=== PATIENT | female | born 1970 | race Caucasian/White ===

== ENCOUNTER 2020-09-13 13:11 | Inpatient (IN) ==
[2020-09-13] MEDS ORDERED: FUROSEMIDE 100 MG/10 ML VIAL IV STA (13:32)
[2020-09-13] MEDS ORDERED: ALBUTEROL NEB SOLN 5 MG/ML 20 ML/BOTTLE CONT NEB SCH (14:00)
[2020-09-13 14:34] LABS: Basophils % 0.4 % (0.0-0.8); Eosinophils # 0.1 10*3/uL (0.0-0.87); Eosinophils % 1.1 % (0.00-10.9); Hematocrit 46.3 VOL% (35.7-47.0); Immature Granulocytes % 0.6 %; Immature Granulocytes Absolute 0.06 #; Lymphocytes # 3.2 10*3/uL (1.4-4.0); Lymphocytes % 29.3 % (21.3-54.2); Mean Corpuscular HGB Conc 32.4 GM/DL (32-36); Mean Corpuscular Volume 83.6 FL (87-102); Mean Platelet Volume 10.3 FL (9.6-12.0); Monocytes % 9.3 % (1.7-12.7); Neutrophils % 59.3 % (38.7-73.9); Platelet Count 298 T/CUMM (130-400); Red Blood Count 5.54 MC/CUMM (3.8-5.5); Red Cell Distribution Width 14.9 % (9.3-17.3); White Blood Count 10.8 T/CUMM (4-12)
[2020-09-13 14:46] LABS: INR 1.2
[2020-09-13 14:53] LABS: ABG Base Excess 4.5 MMOL/L (-2.5-2.5); ABG HCO3 28.5 MMOL/L (20-26); ABG Oxygen Saturation 98.3 % (95-100); ABG PCO2 47.1 MM HG (35-48); ABG PH 7.414 (7.35-7.45); ABG TCO2 25.6 MMOL/L (23-27)
[2020-09-13 14:54] LABS: Albumin 2.6 G/DL (3.4-5.0); Bilirubin,Total 1.6 MG/DL (0.2-1.0); Calcium 8.4 MG/DL (8.5-10.1); Osmolality,Calculated 264.4 MOS/KG (273-304); Potassium 4.3 MMOL/L (3.5-5.1); Total Protein 5.9 G/DL (6.4-8.2)
[2020-09-13] MEDS ORDERED: ONDANSETRON 4 MG/2 ML VIAL IV PRN (15:29)
[2020-09-13] MEDS ORDERED: ACETAMINOPHEN 325 MG TABLET PO PRN (15:29)
[2020-09-13] MEDS ORDERED: DEXTROSE 50% 25 GM/50 ML VIAL IV PRN ×2 (15:29→15:32)
[2020-09-13] MEDS ORDERED: GLUCAGON 1 MG VIAL IM PRN (15:29)
[2020-09-13 15:38] LABS: Bacteria,Urine Many /HPF (Few); Bilirubin,Urine Negative (Negative); Blood, Urine Small mg/dL (Negative); Glucose,Urine (UA) Negative (Negative); Hyaline Casts,Urine 17 /LPF (0-3); Ketones,Urine Negative (Negative); Mucus,Urine Occasional /LPF (Occasional); Nitrite,Urine Positive (Negative); Protein,Urine Negative; RBC,Urine 1 /HPF (0-4); Squamous Epithelial Cell,Urine Occasional /HPF (0-10); Urine Appearance CLEAR (Clear); Urine Color Yellow (Yellow); Urine Specific Gravity 1.004 (1.001-1.035); Urine Urobilinogen < 2.0 EU/DL (0.2-1.0)
[2020-09-13 15:39] LABS: Barbiturates Screen,Urine Negative (Negative); Benzodiazepines Screen,Urine Negative (Negative); Cannabinoid Screen,Urine Negative (Negative); Opiate Screen,Urine Negative (Negative); Phencyclidine Screen,Urine Negative (Negative)
[2020-09-13] MEDS: NICOTINE 21 MG/24 HR PATCH TRANSDERM SCH (18:20)
[2020-09-13] MEDS: INSULIN REGULAR 100 UNIT/ML SUBCUT SCH ×2 (18:36→21:33)
[2020-09-13] MEDS: ALBUTEROL/IPRATROPIUM 3 ML NEB RESP TX SCH (19:47)
[2020-09-13] MEDS ORDERED: INSULIN GLARGINE 100 UNIT/ML SUBCUT SCH (21:00)
[2020-09-13] MEDS: buPROPion SR 100 MG TABLET PO SCH (21:33)
[2020-09-13] MEDS: ENOXAPARIN 40 MG/0.4 ML SYRINGE SUBCUT SCH (21:33)
[2020-09-13] MEDS: DOCUSATE SODIUM 100 MG CAPSULE PO PRN (21:33)
[2020-09-13] MEDS: FUROSEMIDE 40 MG/4 ML VIAL IV SCH (21:34)
[2020-09-13] MEDS: LEVOFLOXACIN INJ 750 MG/150 ML PREMIX IV SCH (21:39)
[2020-09-14] MEDS: ALBUTEROL/IPRATROPIUM 3 ML NEB RESP TX SCH ×4 (00:58→19:57)
[2020-09-14 06:43] LABS: Basophils % 0.3 % (0.0-0.8); Eosinophils # 0.1 10*3/uL (0.0-0.87); Eosinophils % 0.9 % (0.00-10.9); Hematocrit 43.4 VOL% (35.7-47.0); Hemoglobin 13.9 GM/DL (12.0-16.0); Immature Granulocytes % 1.3 %; Immature Granulocytes Absolute 0.14 #; Lymphocytes # 2.4 10*3/uL (1.4-4.0); Mean Corpuscular Volume 84.9 FL (87-102); Mean Platelet Volume 10.5 FL (9.6-12.0); Monocytes % 9.7 % (1.7-12.7); Neutrophils % 64.8 % (38.7-73.9); Platelet Count 277 T/CUMM (130-400); Red Blood Count 5.11 MC/CUMM (3.8-5.5); Red Cell Distribution Width 14.7 % (9.3-17.3); White Blood Count 10.5 T/CUMM (4-12)
[2020-09-14 07:28] LABS: Calcium 8.3 MG/DL (8.5-10.1); Osmolality,Calculated 269.8 MOS/KG (273-304); Potassium 3.3 MMOL/L (3.5-5.1); Thyroid Stimulating Hormone 5.63 uIU/ml (0.358-3.74)
[2020-09-14] MEDS: FUROSEMIDE 40 MG/4 ML VIAL IV SCH ×2 (08:59→20:55)
[2020-09-14] MEDS ORDERED: FUROSEMIDE 40 MG/4 ML VIAL IV SCH (09:00)
[2020-09-14] MEDS: glipiZIDE 5 MG TABLET PO SCH ×2 (09:00→16:08)
[2020-09-14] MEDS: sitaGLIPtin 100 MG TABLET PO SCH (09:00)
[2020-09-14] MEDS: INSULIN REGULAR 100 UNIT/ML SUBCUT SCH ×4 (09:00→20:54)
[2020-09-14] MEDS: buPROPion SR 100 MG TABLET PO SCH ×2 (09:01→20:53)
[2020-09-14] MEDS: POTASSIUM CHLORIDE 20 MEQ TABLET PO SCH (09:01)
[2020-09-14] MEDS: metFORMIN 500 MG TABLET PO SCH ×2 (09:01→16:08)
[2020-09-14] MEDS: NICOTINE 21 MG/24 HR PATCH TRANSDERM SCH (09:03)
[2020-09-14] MEDS: BACITRACIN OINT 0.9 GM PACK TOP SCH (16:08)
[2020-09-14] MEDS: DOCUSATE SODIUM 100 MG CAPSULE PO PRN (16:12)
[2020-09-14] MEDS: ENOXAPARIN 40 MG/0.4 ML SYRINGE SUBCUT SCH (20:53)
[2020-09-14] MEDS: LEVOFLOXACIN INJ 750 MG/150 ML PREMIX IV SCH (20:55)
[2020-09-15] MEDS: ALBUTEROL/IPRATROPIUM 3 ML NEB RESP TX SCH ×4 (00:03→19:50)
[2020-09-15 06:37] LABS: Basophils % 0.3 % (0.0-0.8); Eosinophils # 0.2 10*3/uL (0.0-0.87); Eosinophils % 1.3 % (0.00-10.9); Hemoglobin 13.7 GM/DL (12.0-16.0); Immature Granulocytes % 0.5 %; Immature Granulocytes Absolute 0.06 #; Lymphocytes # 2.5 10*3/uL (1.4-4.0); Lymphocytes % 21.3 % (21.3-54.2); Mean Corpuscular HGB Conc 31.9 GM/DL (32-36); Mean Corpuscular Volume 83.7 FL (87-102); Mean Platelet Volume 10.3 FL (9.6-12.0); Monocytes % 9.6 % (1.7-12.7); Platelet Count 273 T/CUMM (130-400); Red Blood Count 5.14 MC/CUMM (3.8-5.5); Red Cell Distribution Width 14.9 % (9.3-17.3); White Blood Count 11.9 T/CUMM (4-12)
[2020-09-15 07:07] LABS: Calcium 8.1 MG/DL (8.5-10.1); Osmolality,Calculated 266.5 MOS/KG (273-304); Potassium 3.2 MMOL/L (3.5-5.1)
[2020-09-15] MEDS: metFORMIN 500 MG TABLET PO SCH (08:36)
[2020-09-15] MEDS: DOCUSATE SODIUM 100 MG CAPSULE PO PRN (08:36)
[2020-09-15] MEDS: buPROPion SR 100 MG TABLET PO SCH (08:36)
[2020-09-15] MEDS: POTASSIUM CHLORIDE 20 MEQ TABLET PO SCH (08:36)
[2020-09-15] MEDS: sitaGLIPtin 100 MG TABLET PO SCH (08:36)
[2020-09-15] MEDS: FUROSEMIDE 40 MG/4 ML VIAL IV SCH ×2 (08:37→21:21)
[2020-09-15] MEDS: BACITRACIN OINT 0.9 GM PACK TOP SCH (08:37)
[2020-09-15] MEDS: INSULIN REGULAR 100 UNIT/ML SUBCUT SCH ×5 (08:37→21:18)
[2020-09-15] MEDS: NICOTINE 21 MG/24 HR PATCH TRANSDERM SCH (08:39)
[2020-09-15] MEDS: glipiZIDE 5 MG TABLET PO SCH ×2 (09:41→17:02)
[2020-09-15] MEDS: SENNA 8.6 MG TABLET PO SCH ×2 (09:41→21:15)
[2020-09-15] MEDS: DOCUSATE SODIUM 100 MG CAPSULE PO SCH ×2 (10:06→21:15)
[2020-09-15] MEDS ORDERED: POTASSIUM CHLORIDE 20 MEQ TABLET PO ONE (12:09)
[2020-09-15] MEDS: ASPIRIN EC 81 MG TABLET PO SCH (17:02)
[2020-09-15] MEDS: LOSARTAN 25 MG TABLET PO SCH (17:04)
[2020-09-15] MEDS: METOPROLOL TARTRATE 25 MG TABLET PO SCH (21:14)
[2020-09-15] MEDS: buPROPion SR 150 MG TABLET PO SCH (21:15)
[2020-09-15] MEDS: DIVALPROEX ER 500 MG TABLET PO SCH (21:18)
[2020-09-15] MEDS: ENOXAPARIN 40 MG/0.4 ML SYRINGE SUBCUT SCH (21:18)
[2020-09-15] MEDS: LEVOFLOXACIN INJ 750 MG/150 ML PREMIX IV SCH (21:21)
[2020-09-16] MEDS: ALBUTEROL/IPRATROPIUM 3 ML NEB RESP TX SCH ×4 (00:05→19:51)
[2020-09-16 05:17] LABS: Basophils % 0.2 % (0.0-0.8); Eosinophils # 0.1 10*3/uL (0.0-0.87); Eosinophils % 1.3 % (0.00-10.9); Hemoglobin 13.6 GM/DL (12.0-16.0); Immature Granulocytes % 0.6 %; Immature Granulocytes Absolute 0.06 #; Lymphocytes # 2.6 10*3/uL (1.4-4.0); Lymphocytes % 24.3 % (21.3-54.2); Mean Corpuscular HGB Conc 31.6 GM/DL (32-36); Mean Corpuscular Volume 84.8 FL (87-102); Mean Platelet Volume 10.3 FL (9.6-12.0); Monocytes % 10.2 % (1.7-12.7); Neutrophils % 63.4 % (38.7-73.9); Platelet Count 272 T/CUMM (130-400); Red Blood Count 5.07 MC/CUMM (3.8-5.5); White Blood Count 10.6 T/CUMM (4-12)
[2020-09-16 05:46] LABS: Calcium 8.1 MG/DL (8.5-10.1); Osmolality,Calculated 256.1 MOS/KG (273-304); Potassium 3.5 MMOL/L (3.5-5.1)
[2020-09-16] MEDS: INSULIN REGULAR 100 UNIT/ML SUBCUT SCH ×3 (08:39→16:27)
[2020-09-16] MEDS: ASPIRIN EC 81 MG TABLET PO SCH (09:31)
[2020-09-16] MEDS: POTASSIUM CHLORIDE 20 MEQ TABLET PO SCH (09:31)
[2020-09-16] MEDS: LOSARTAN 25 MG TABLET PO SCH (09:31)
[2020-09-16] MEDS: glipiZIDE 5 MG TABLET PO SCH (09:31)
[2020-09-16] MEDS: SENNA 8.6 MG TABLET PO SCH ×2 (09:31→20:52)
[2020-09-16] MEDS: METOPROLOL TARTRATE 25 MG TABLET PO SCH ×2 (09:31→20:52)
[2020-09-16] MEDS: FUROSEMIDE 40 MG/4 ML VIAL IV SCH ×2 (09:31→20:51)
[2020-09-16] MEDS: sitaGLIPtin 100 MG TABLET PO SCH (09:31)
[2020-09-16] MEDS: buPROPion SR 150 MG TABLET PO SCH ×2 (09:31→20:52)
[2020-09-16] MEDS: BACITRACIN OINT 0.9 GM PACK TOP SCH (09:32)
[2020-09-16] MEDS: DOCUSATE SODIUM 100 MG CAPSULE PO SCH ×2 (09:32→20:52)
[2020-09-16] MEDS: NICOTINE 21 MG/24 HR PATCH TRANSDERM SCH (09:45)
[2020-09-16] MEDS ORDERED: NITROGLYCERIN SL 0.4 MG TABLET SL PRN (11:26)
[2020-09-16] MEDS: PANTOPRAZOLE 40 MG TABLET PO SCH (12:10)
[2020-09-16] MEDS ORDERED: MAGNESIUM SULF RIDER 2 GM/50 ML PREMIX IV ONE (13:39)
[2020-09-16] MEDS: GABAPENTIN 100 MG CAPSULE PO SCH ×2 (14:37→20:52)
[2020-09-16] MEDS: LEVOFLOXACIN INJ 750 MG/150 ML PREMIX IV SCH (20:51)
[2020-09-16] MEDS: DIVALPROEX ER 500 MG TABLET PO SCH (20:53)
[2020-09-16] MEDS: ENOXAPARIN 40 MG/0.4 ML SYRINGE SUBCUT SCH (20:56)
[2020-09-17] MEDS: ALBUTEROL/IPRATROPIUM 3 ML NEB RESP TX SCH ×3 (00:21→13:03)
[2020-09-17 05:30] LABS: Basophils # 0.1 10*3/uL (0.0-0.2); Basophils % 0.5 % (0.0-0.8); Eosinophils # 0.2 10*3/uL (0.0-0.87); Eosinophils % 1.9 % (0.00-10.9); Hematocrit 40.9 VOL% (35.7-47.0); Hemoglobin 13.4 GM/DL (12.0-16.0); Immature Granulocytes % 0.6 %; Immature Granulocytes Absolute 0.06 #; Lymphocytes # 2.4 10*3/uL (1.4-4.0); Lymphocytes % 24.9 % (21.3-54.2); Mean Corpuscular HGB Conc 32.8 GM/DL (32-36); Mean Corpuscular Volume 83.8 FL (87-102); Mean Platelet Volume 10.4 FL (9.6-12.0); Neutrophils % 62.1 % (38.7-73.9); Platelet Count 266 T/CUMM (130-400); Red Blood Count 4.88 MC/CUMM (3.8-5.5); Red Cell Distribution Width 15.1 % (9.3-17.3); White Blood Count 9.7 T/CUMM (4-12)
[2020-09-17 05:48] LABS: Calcium 8.3 MG/DL (8.5-10.1); Osmolality,Calculated 261.1 MOS/KG (273-304); Potassium 3.4 MMOL/L (3.5-5.1)
[2020-09-17 06:07] LABS: Risk Ratio 3.52
[2020-09-17] MEDS: buPROPion SR 150 MG TABLET PO SCH ×2 (09:01→20:37)
[2020-09-17] MEDS: POTASSIUM CHLORIDE 20 MEQ TABLET PO SCH (09:01)
[2020-09-17] MEDS: FUROSEMIDE 40 MG/4 ML VIAL IV SCH ×2 (09:01→20:46)
[2020-09-17] MEDS: INSULIN REGULAR 100 UNIT/ML SUBCUT SCH ×4 (09:01→23:41)
[2020-09-17] MEDS: sitaGLIPtin 100 MG TABLET PO SCH (09:01)
[2020-09-17] MEDS: BACITRACIN OINT 0.9 GM PACK TOP SCH (09:01)
[2020-09-17] MEDS: SENNA 8.6 MG TABLET PO SCH ×2 (09:02→20:38)
[2020-09-17] MEDS: DOCUSATE SODIUM 100 MG CAPSULE PO SCH ×2 (09:02→20:38)
[2020-09-17] MEDS: PANTOPRAZOLE 40 MG TABLET PO SCH (09:02)
[2020-09-17] MEDS: GABAPENTIN 100 MG CAPSULE PO SCH ×3 (09:02→20:38)
[2020-09-17] MEDS: LOSARTAN 25 MG TABLET PO SCH (09:02)
[2020-09-17] MEDS: ASPIRIN EC 81 MG TABLET PO SCH (09:02)
[2020-09-17] MEDS: METOPROLOL TARTRATE 25 MG TABLET PO SCH ×2 (10:02→20:37)
[2020-09-17] MEDS: NICOTINE 21 MG/24 HR PATCH TRANSDERM SCH (10:02)
[2020-09-17] MEDS: ENOXAPARIN 40 MG/0.4 ML SYRINGE SUBCUT SCH (20:38)
[2020-09-17] MEDS: DIVALPROEX ER 500 MG TABLET PO SCH (20:38)
[2020-09-17] MEDS: LEVOFLOXACIN INJ 750 MG/150 ML PREMIX IV SCH (20:49)
[2020-09-18] MEDS: ALBUTEROL/IPRATROPIUM 3 ML NEB RESP TX SCH ×3 (01:42→07:40)
[2020-09-18 05:27] LABS: Basophils % 0.2 % (0.0-0.8); Eosinophils # 0.2 10*3/uL (0.0-0.87); Hematocrit 40.6 VOL% (35.7-47.0); Hemoglobin 12.9 GM/DL (12.0-16.0); Immature Granulocytes % 0.7 %; Immature Granulocytes Absolute 0.06 #; Lymphocytes # 2.1 10*3/uL (1.4-4.0); Lymphocytes % 25.3 % (21.3-54.2); Mean Corpuscular HGB Conc 31.8 GM/DL (32-36); Mean Corpuscular Volume 84.4 FL (87-102); Mean Platelet Volume 10.4 FL (9.6-12.0); Monocytes % 9.5 % (1.7-12.7); Neutrophils % 62.3 % (38.7-73.9); Platelet Count 258 T/CUMM (130-400); Red Blood Count 4.81 MC/CUMM (3.8-5.5); White Blood Count 8.1 T/CUMM (4-12)
[2020-09-18 05:42] LABS: Calcium 7.7 MG/DL (8.5-10.1); Osmolality,Calculated 260.2 MOS/KG (273-304); Potassium 3.6 MMOL/L (3.5-5.1)
[2020-09-18] MEDS: BACITRACIN OINT 0.9 GM PACK TOP SCH (09:18)
[2020-09-18] MEDS: POTASSIUM CHLORIDE 20 MEQ TABLET PO SCH (09:19)
[2020-09-18] MEDS: GABAPENTIN 100 MG CAPSULE PO SCH ×2 (09:19→16:58)
[2020-09-18] MEDS: PANTOPRAZOLE 40 MG TABLET PO SCH (09:19)
[2020-09-18] MEDS: SENNA 8.6 MG TABLET PO SCH (09:19)
[2020-09-18] MEDS: DOCUSATE SODIUM 100 MG CAPSULE PO SCH (09:19)
[2020-09-18] MEDS: sitaGLIPtin 100 MG TABLET PO SCH (09:19)
[2020-09-18] MEDS: buPROPion SR 150 MG TABLET PO SCH (09:20)
[2020-09-18] MEDS: ASPIRIN EC 81 MG TABLET PO SCH (09:20)
[2020-09-18] MEDS: FUROSEMIDE 40 MG/4 ML VIAL IV SCH (09:20)
[2020-09-18] MEDS: METOPROLOL TARTRATE 25 MG TABLET PO SCH (09:27)
[2020-09-18] MEDS: NICOTINE 21 MG/24 HR PATCH TRANSDERM SCH (09:27)
[2020-09-18] MEDS: INSULIN REGULAR 100 UNIT/ML SUBCUT SCH ×2 (09:27→12:16)
[2020-09-18 16:33] VITALS: BP 114/92
== END 2020-09-18 16:45 | disposition home health service (06) | DRG 194 ==
LOC: EDBD → EDUNIT# → N.ED 13:11 → SUATTDRO 15:28 → N.EDINP 15:28 → N.5E 17:41
PROVIDERS: ADMIT Hospitalist; ATTEND Internal Medicine

== ENCOUNTER 2020-09-27 11:26 | Inpatient (IN) ==
[2020-09-27 12:20] LABS: Basophils % 0.5 % (0.0-0.8); Eosinophils # 0.1 10*3/uL (0.0-0.87); Eosinophils % 0.8 % (0.00-10.9); Hematocrit 48.5 VOL% (35.7-47.0); Hemoglobin 15.5 GM/DL (12.0-16.0); Immature Granulocytes % 0.9 %; Immature Granulocytes Absolute 0.06 #; Lymphocytes # 1.4 10*3/uL (1.4-4.0); Lymphocytes % 20.5 % (21.3-54.2); Mean Corpuscular Volume 83.9 FL (87-102); Mean Platelet Volume 9.7 FL (9.6-12.0); Monocytes % 10.5 % (1.7-12.7); Neutrophils % 66.8 % (38.7-73.9); Platelet Count 291 T/CUMM (130-400); Red Blood Count 5.78 MC/CUMM (3.8-5.5); Red Cell Distribution Width 16.9 % (9.3-17.3); White Blood Count 6.6 T/CUMM (4-12)
[2020-09-27] MEDS ORDERED: FUROSEMIDE 40 MG/4 ML VIAL IV STA (12:39)
[2020-09-27 12:41] LABS: Albumin 2.6 G/DL (3.4-5.0); Bilirubin,Total 0.8 MG/DL (0.2-1.0); Calcium 8.7 MG/DL (8.5-10.1); Osmolality,Calculated 267.2 MOS/KG (273-304); Potassium 4.2 MMOL/L (3.5-5.1); Total Protein 6.1 G/DL (6.4-8.2)
[2020-09-27 12:56] LABS: Bilirubin,Urine Negative (Negative); Blood, Urine Negative (Negative); Glucose,Urine (UA) Negative (Negative); Ketones,Urine Negative (Negative); Nitrite,Urine Negative (Negative); Protein,Urine Negative; RBC,Urine <1 /HPF (0-4); Squamous Epithelial Cell,Urine Occasional /HPF (0-10); Urine Appearance CLEAR (Clear); Urine Color Yellow (Yellow); Urine Specific Gravity 1.002 (1.001-1.035); Urine Urobilinogen < 2.0 EU/DL (0.2-1.0)
[2020-09-27] MEDS ORDERED: VANCOMYCIN INJ 1,500 MG in SODIUM CHLORIDE 0.9% 500 ML IV STA (13:44)
[2020-09-27] MEDS ORDERED: DEXTROSE 50% 25 GM/50 ML VIAL IV PRN ×2 (14:18)
[2020-09-27] MEDS ORDERED: GLUCAGON 1 MG VIAL IM PRN ×2 (14:18)
[2020-09-27] MEDS ORDERED: ONDANSETRON 4 MG/2 ML VIAL IV PRN (14:18)
[2020-09-27] MEDS ORDERED: NICOTINE 21 MG/24 HR PATCH TRANSDERM PRN (14:18)
[2020-09-27] MEDS ORDERED: ACETAMINOPHEN 325 MG TABLET PO PRN (14:18)
[2020-09-27] MEDS: INSULIN LISPRO 100 UNIT/ML SUBCUT SCH ×2 (17:00→21:09)
[2020-09-27] MEDS: FUROSEMIDE 40 MG/4 ML VIAL IV SCH (20:26)
[2020-09-28] MEDS ORDERED: VANCOMYCIN INJ 1,750 MG in SODIUM CHLORIDE 0.9% 500 ML IV SCH (04:00)
[2020-09-28 05:46] LABS: Albumin 2.1 G/DL (3.4-5.0); Bilirubin,Total 0.8 MG/DL (0.2-1.0); Calcium 8.3 MG/DL (8.5-10.1); Osmolality,Calculated 272.7 MOS/KG (273-304); Potassium 3.3 MMOL/L (3.5-5.1); Total Protein 5.5 G/DL (6.4-8.2)
[2020-09-28] MEDS: PANTOPRAZOLE 40 MG TABLET PO SCH (09:26)
[2020-09-28] MEDS: FUROSEMIDE 40 MG/4 ML VIAL IV SCH ×2 (09:27→17:00)
[2020-09-28] MEDS: INSULIN LISPRO 100 UNIT/ML SUBCUT SCH ×4 (09:28→21:56)
[2020-09-28] MEDS ORDERED: POTASSIUM CHLORIDE 20 MEQ TABLET PO ONE (11:00)
[2020-09-28] MEDS: SPIRONOLACTONE 25 MG TABLET PO SCH (11:43)
[2020-09-28] MEDS: LOSARTAN 25 MG TABLET PO SCH (11:44)
[2020-09-28] MEDS ORDERED: MAGNESIUM SULF RIDER 2 GM/50 ML PREMIX IV ONE (12:00)
[2020-09-28] MEDS: TRIAMCINOLONE 0.025% CREAM 15 GM TUBE TOP SCH (14:56)
[2020-09-28] MEDS: GABAPENTIN 100 MG CAPSULE PO SCH ×2 (14:57→21:08)
[2020-09-28] MEDS: DESITIN 4OZ/NYSTATIN 15 GRAM MIXTURE PASTE TOP SCH ×2 (14:57→21:20)
[2020-09-28] MEDS: SERTRALINE 50 MG TABLET PO SCH (21:08)
[2020-09-28] MEDS: carvediloL 3.125 MG TABLET PO SCH (21:08)
[2020-09-28] MEDS: BENZTROPINE 1 MG TABLET PO SCH (21:08)
[2020-09-28] MEDS: risperiDONE 0.25 MG TABLET PO SCH (21:08)
[2020-09-28] MEDS: DIVALPROEX ER 500 MG TABLET PO SCH (21:09)
[2020-09-28] MEDS: ENOXAPARIN 40 MG/0.4 ML SYRINGE SUBCUT SCH (21:09)
[2020-09-29 06:12] LABS: Basophils % 0.3 % (0.0-0.8); Eosinophils # 0.2 10*3/uL (0.0-0.87); Eosinophils % 1.7 % (0.00-10.9); Hematocrit 41.8 VOL% (35.7-47.0); Hemoglobin 12.6 GM/DL (12.0-16.0); Immature Granulocytes % 0.7 %; Immature Granulocytes Absolute 0.06 #; Lymphocytes # 1.8 10*3/uL (1.4-4.0); Lymphocytes % 20.3 % (21.3-54.2); Mean Corpuscular HGB Conc 30.1 GM/DL (32-36); Mean Corpuscular Volume 86.4 FL (87-102); Mean Platelet Volume 9.4 FL (9.6-12.0); Monocytes % 17.1 % (1.7-12.7); Neutrophils % 59.9 % (38.7-73.9); Platelet Count 264 T/CUMM (130-400); Red Blood Count 4.84 MC/CUMM (3.8-5.5); Red Cell Distribution Width 16.4 % (9.3-17.3); White Blood Count 8.6 T/CUMM (4-12)
[2020-09-29 06:28] LABS: Calcium 8.2 MG/DL (8.5-10.1); Osmolality,Calculated 273.7 MOS/KG (273-304); Potassium 2.8 MMOL/L (3.5-5.1)
[2020-09-29 06:53] LABS: Band Neutrophils 7 % (0-10); Eosinophils 1 % (0-10); Lymphocytes 19 % (20-55); Platelet Estimate Normal; Segmented Neutrophils 58 % (50-85); Total Cells Counted 100
[2020-09-29 06:54] LABS: Anisocytosis Slight; Hypochromasia Slight
[2020-09-29] MEDS ORDERED: POTASSIUM CHLORIDE 20 MEQ TABLET PO ONE (08:00)
[2020-09-29] MEDS: ASPIRIN EC 81 MG TABLET PO SCH (08:40)
[2020-09-29] MEDS: GABAPENTIN 100 MG CAPSULE PO SCH ×3 (08:40→20:39)
[2020-09-29] MEDS: risperiDONE 0.25 MG TABLET PO SCH ×2 (08:41→20:38)
[2020-09-29] MEDS: PANTOPRAZOLE 40 MG TABLET PO SCH (08:41)
[2020-09-29] MEDS: carvediloL 3.125 MG TABLET PO SCH ×2 (08:41→20:39)
[2020-09-29] MEDS: SPIRONOLACTONE 25 MG TABLET PO SCH (08:41)
[2020-09-29] MEDS: LOSARTAN 25 MG TABLET PO SCH (08:41)
[2020-09-29] MEDS: DESITIN 4OZ/NYSTATIN 15 GRAM MIXTURE PASTE TOP SCH ×2 (08:42→20:39)
[2020-09-29] MEDS: TRIAMCINOLONE 0.025% CREAM 15 GM TUBE TOP SCH (09:06)
[2020-09-29] MEDS: sitaGLIPtin 100 MG TABLET PO SCH (09:06)
[2020-09-29] MEDS: INSULIN LISPRO 100 UNIT/ML SUBCUT SCH ×4 (09:13→20:02)
[2020-09-29] MEDS ORDERED: DEXTROSE 50% 25 GM/50 ML VIAL IV PRN (09:58)
[2020-09-29] MEDS: FUROSEMIDE 40 MG TABLET PO SCH ×2 (11:18→15:30)
[2020-09-29] MEDS ORDERED: POTASSIUM CHLORIDE 20 MEQ/15 ML UDCUP PO ONE (12:00)
[2020-09-29] MEDS: ENOXAPARIN 40 MG/0.4 ML SYRINGE SUBCUT SCH (20:38)
[2020-09-29] MEDS: SERTRALINE 50 MG TABLET PO SCH (20:38)
[2020-09-29] MEDS: BENZTROPINE 1 MG TABLET PO SCH (20:38)
[2020-09-29] MEDS: DIVALPROEX ER 500 MG TABLET PO SCH (20:39)
[2020-09-30 07:47] LABS: Calcium 7.8 MG/DL (8.5-10.1); Osmolality,Calculated 268.1 MOS/KG (273-304); Potassium 3.3 MMOL/L (3.5-5.1)
[2020-09-30] MEDS: PANTOPRAZOLE 40 MG TABLET PO SCH (08:51)
[2020-09-30] MEDS: INSULIN LISPRO 100 UNIT/ML SUBCUT SCH ×2 (08:51→12:01)
[2020-09-30] MEDS: SPIRONOLACTONE 25 MG TABLET PO SCH (08:51)
[2020-09-30] MEDS: ASPIRIN EC 81 MG TABLET PO SCH (08:52)
[2020-09-30] MEDS: risperiDONE 0.25 MG TABLET PO SCH (08:52)
[2020-09-30] MEDS: GABAPENTIN 100 MG CAPSULE PO SCH (08:52)
[2020-09-30] MEDS: sitaGLIPtin 100 MG TABLET PO SCH (08:52)
[2020-09-30] MEDS: LOSARTAN 25 MG TABLET PO SCH (08:52)
[2020-09-30] MEDS: FUROSEMIDE 40 MG TABLET PO SCH (08:52)
[2020-09-30] MEDS: DESITIN 4OZ/NYSTATIN 15 GRAM MIXTURE PASTE TOP SCH (08:52)
[2020-09-30] MEDS: carvediloL 3.125 MG TABLET PO SCH (08:52)
[2020-09-30] MEDS: TRIAMCINOLONE 0.025% CREAM 15 GM TUBE TOP SCH (08:53)
[2020-09-30] MEDS ORDERED: POTASSIUM CHLORIDE 20 MEQ TABLET PO ONE (10:40)
[2020-09-30 15:09] VITALS: BP 116/68
[2020-10-01] MEDS ORDERED: LEVOFLOXACIN 500 MG TABLET PO SCH (09:00)
== END 2020-09-30 15:14 | disposition home or self-care (01) | DRG 194 ==
LOC: N.ED 11:26 → N.EDINP 14:18 → SUATTDRO 14:18 → N.EDINP 15:59 → N.3E 16:15
PROVIDERS: ADMIT Internal Medicine; ATTEND Hospitalist

== ENCOUNTER 2021-04-03 12:20 | Observation (INO) ==
[2021-04-03] MEDS ORDERED: SODIUM CHLORIDE 0.9% 1,000 ML IV STA (12:37)
[2021-04-03 13:02] LABS: Basophils % 0.2 % (0.0-0.8); Eosinophils # 0.2 10*3/uL (0.0-0.87); Eosinophils % 1.7 % (0.00-10.9); Hematocrit 41.4 VOL% (35.7-47.0); Immature Granulocytes % 0.6 %; Immature Granulocytes Absolute 0.06 #; Lymphocytes # 1.7 10*3/uL (1.4-4.0); Lymphocytes % 16.7 % (21.3-54.2); Mean Corpuscular HGB Conc 33.8 GM/DL (32-36); Mean Corpuscular Volume 84.3 FL (87-102); Mean Platelet Volume 9.6 FL (9.6-12.0); Monocytes % 6.3 % (1.7-12.7); Neutrophils % 74.5 % (38.7-73.9); Platelet Count 301 T/CUMM (130-400); Red Blood Count 4.91 MC/CUMM (3.8-5.5); Red Cell Distribution Width 20.1 % (9.3-17.3); White Blood Count 10.3 T/CUMM (4-12)
[2021-04-03 13:11] LABS: PT Patient Result 11.1 SECS (10.5-12.0)
[2021-04-03 13:21] LABS: Albumin 2.7 G/DL (3.4-5.0); Bilirubin,Total 0.4 MG/DL (0.20-1.00); Calcium 9.3 MG/DL (8.5-10.1); Osmolality,Calculated 263.4 MOS/KG (273-304); Total Protein 7.7 G/DL (6.4-8.2)
[2021-04-03 13:22] LABS: Bilirubin,Urine Negative (Negative); Blood, Urine Negative (Negative); Glucose,Urine (UA) 50 mg/dL (Negative); Hyaline Casts,Urine 36 /LPF (0-3); Ketones,Urine Negative (Negative); Mucus,Urine Occasional /LPF (Occasional); Nitrite,Urine Negative (Negative); Protein,Urine 30 MG/DL; RBC,Urine 1 /HPF (0-4); Squamous Epithelial Cell,Urine Occasional /HPF (0-10); Urine Appearance CLEAR (Clear); Urine Color Straw (Yellow); Urine Specific Gravity 1.006 (1.001-1.035); Urine Urobilinogen < 2.0 EU/DL (<2.0)
[2021-04-03 13:27] LABS: Barbiturates Screen,Urine Negative (Negative); Benzodiazepines Screen,Urine Negative (Negative); Cannabinoid Screen,Urine Negative (Negative); Opiate Screen,Urine Negative (Negative); Phencyclidine Screen,Urine Negative (Negative)
[2021-04-03 13:37] LABS: Potassium 2.4 MMOL/L (3.5-5.1)
[2021-04-03] MEDS ORDERED: POTASSIUM CHLORIDE 20 MEQ TABLET PO STA (13:52)
[2021-04-03] MEDS: SODIUM CHLOR 0.9% KCL 40 MEQ 40 MEQ/1,000 ML BAG IV SCH (14:50)
[2021-04-03] MEDS ORDERED: DEXTROSE 50% 25 GM/50 ML VIAL IV PRN (16:09)
[2021-04-03] MEDS ORDERED: BISACODYL 5 MG TABLET PO PRN (16:09)
[2021-04-03] MEDS ORDERED: ONDANSETRON 4 MG/2 ML VIAL IV PRN (16:09)
[2021-04-03] MEDS ORDERED: diphenhydrAMINE CAP 25 MG CAPSULE PO PRN (16:09)
[2021-04-03] MEDS ORDERED: ZALEPLON 5 MG CAPSULE PO PRN (16:09)
[2021-04-03] MEDS ORDERED: GLUCAGON 1 MG VIAL IM PRN ×2 (16:09)
[2021-04-03] MEDS ORDERED: DEXTROSE 50% 25 GM/50 ML SYRINGE IV PRN (16:09)
[2021-04-03] MEDS ORDERED: guaiFENesin/DM ER 600-30 MG TABLET PO PRN (16:09)
[2021-04-03] MEDS ORDERED: MORPHINE 2 MG/1 ML SYRINGE IV PRN (16:09)
[2021-04-03] MEDS ORDERED: ACETAMINOPHEN 325 MG TABLET PO PRN (16:09)
[2021-04-03] MEDS ORDERED: hydrALAZINE 20 MG/1 ML VIAL IV PRN (16:09)
[2021-04-03] MEDS ORDERED: NICOTINE 21 MG/24 HR PATCH TRANSDERM PRN (16:09)
[2021-04-03] MEDS ORDERED: POTASSIUM CHLORIDE RIDER 10 MEQ/100 ML PREMIX IV PRN (16:11)
[2021-04-03] MEDS: carvediloL 3.125 MG TABLET PO SCH (17:35)
[2021-04-03] MEDS: INSULIN LISPRO 100 UNIT/ML SUBCUT SCH ×2 (17:35→21:23)
[2021-04-03] MEDS: HEPARIN 5,000 UNIT/1 ML VIAL SUBCUT SCH (21:10)
[2021-04-03] MEDS: DIVALPROEX ER 500 MG TABLET PO SCH (21:12)
[2021-04-03] MEDS: POTASSIUM CHLORIDE 20 MEQ TABLET PO SCH (21:18)
[2021-04-04] MEDS: SODIUM CHLOR 0.9% KCL 40 MEQ 40 MEQ/1,000 ML BAG IV SCH ×3 (03:13→22:15)
[2021-04-04 06:50] LABS: Basophils % 0.3 % (0.0-0.8); Eosinophils # 0.2 10*3/uL (0.0-0.87); Eosinophils % 2.6 % (0.00-10.9); Hematocrit 40.5 VOL% (35.7-47.0); Hemoglobin 13.3 GM/DL (12.0-16.0); Immature Granulocytes % 0.6 %; Immature Granulocytes Absolute 0.05 #; Lymphocytes # 2.3 10*3/uL (1.4-4.0); Lymphocytes % 25.5 % (21.3-54.2); Mean Corpuscular HGB Conc 32.8 GM/DL (32-36); Mean Corpuscular Volume 86.7 FL (87-102); Mean Platelet Volume 9.7 FL (9.6-12.0); Monocytes % 6.7 % (1.7-12.7); Neutrophils % 64.3 % (38.7-73.9); Platelet Count 288 T/CUMM (130-400); Red Blood Count 4.67 MC/CUMM (3.8-5.5); Red Cell Distribution Width 20.4 % (9.3-17.3); White Blood Count 8.9 T/CUMM (4-12)
[2021-04-04 07:17] LABS: Calcium 9.1 MG/DL (8.5-10.1); Osmolality,Calculated 277.2 MOS/KG (273-304); Potassium 3.1 MMOL/L (3.5-5.1)
[2021-04-04] MEDS ORDERED: LOSARTAN 25 MG TABLET PO SCH (09:00)
[2021-04-04] MEDS ORDERED: SPIRONOLACTONE 25 MG TABLET PO SCH (09:00)
[2021-04-04] MEDS: INSULIN LISPRO 100 UNIT/ML SUBCUT SCH ×4 (09:26→22:15)
[2021-04-04] MEDS: PANTOPRAZOLE 40 MG TABLET PO SCH (09:26)
[2021-04-04] MEDS: ASPIRIN EC 81 MG TABLET PO SCH (09:27)
[2021-04-04] MEDS: POTASSIUM CHLORIDE 20 MEQ TABLET PO SCH ×2 (09:27→20:31)
[2021-04-04] MEDS: HEPARIN 5,000 UNIT/1 ML VIAL SUBCUT SCH ×2 (09:28→20:31)
[2021-04-04] MEDS: carvediloL 3.125 MG TABLET PO SCH ×2 (09:28→17:38)
[2021-04-04] MEDS ORDERED: KETOROLAC 30 MG/1 ML VIAL IV ONE (09:36)
[2021-04-04] MEDS: GABAPENTIN 100 MG CAPSULE PO SCH ×2 (17:38→20:31)
[2021-04-04] MEDS: DIVALPROEX ER 500 MG TABLET PO SCH (20:30)
[2021-04-04] MEDS: risperiDONE 0.25 MG TABLET PO SCH (20:30)
[2021-04-04] MEDS ORDERED: SERTRALINE 50 MG TABLET PO SCH (21:00)
[2021-04-04] MEDS ORDERED: BENZTROPINE 1 MG TABLET PO SCH (21:00)
[2021-04-05] MEDS: SODIUM CHLOR 0.9% KCL 40 MEQ 40 MEQ/1,000 ML BAG IV SCH (05:41)
[2021-04-05 06:01] LABS: Basophils % 0.3 % (0.0-0.8); Eosinophils # 0.3 10*3/uL (0.0-0.87); Eosinophils % 3.9 % (0.00-10.9); Hematocrit 39.3 VOL% (35.7-47.0); Hemoglobin 12.7 GM/DL (12.0-16.0); Immature Granulocytes % 0.6 %; Immature Granulocytes Absolute 0.05 #; Lymphocytes # 2.9 10*3/uL (1.4-4.0); Lymphocytes % 33.6 % (21.3-54.2); Mean Corpuscular HGB Conc 32.3 GM/DL (32-36); Mean Corpuscular Volume 88.3 FL (87-102); Mean Platelet Volume 9.4 FL (9.6-12.0); Monocytes % 6.4 % (1.7-12.7); Neutrophils % 55.2 % (38.7-73.9); Platelet Count 280 T/CUMM (130-400); Red Blood Count 4.45 MC/CUMM (3.8-5.5); Red Cell Distribution Width 20.4 % (9.3-17.3); White Blood Count 8.6 T/CUMM (4-12)
[2021-04-05 06:16] LABS: Osmolality,Calculated 269.7 MOS/KG (273-304); Potassium 4.5 MMOL/L (3.5-5.1)
[2021-04-05] MEDS ORDERED: SODIUM CHLORIDE 0.9% 500 ML IV ONE (08:36)
[2021-04-05] MEDS ORDERED: SPIRONOLACTONE 25 MG TABLET PO SCH (09:00)
[2021-04-05] MEDS: ASPIRIN EC 81 MG TABLET PO SCH (09:01)
[2021-04-05] MEDS: GABAPENTIN 100 MG CAPSULE PO SCH (09:01)
[2021-04-05] MEDS: PANTOPRAZOLE 40 MG TABLET PO SCH (09:01)
[2021-04-05] MEDS: INSULIN LISPRO 100 UNIT/ML SUBCUT SCH ×2 (09:01→13:23)
[2021-04-05] MEDS: HEPARIN 5,000 UNIT/1 ML VIAL SUBCUT SCH (09:02)
[2021-04-05] MEDS: carvediloL 3.125 MG TABLET PO SCH (09:02)
[2021-04-05] MEDS: risperiDONE 0.25 MG TABLET PO SCH (09:02)
[2021-04-05] MEDS: POTASSIUM CHLORIDE 20 MEQ TABLET PO SCH (09:06)
[2021-04-05] MEDS ORDERED: INSULIN GLARGINE 100 UNIT/ML SUBCUT SCH (10:23)
[2021-04-05 10:44] VITALS: BP 110/52
== END 2021-04-05 16:15 ==
LOC: EDBD → EDUNIT# → N.ED 12:20 → N.TELES 12:20 → SUATTDRO 16:09 → N.TELES 22:25
PROVIDERS: ADMIT Internal Medicine; ATTEND Internal Medicine